=== PATIENT | male | born 1990 | race Caucasian/White ===

== ENCOUNTER → 2017-11-14 10:34 | Outpatient (CLI) | payer SELFPAY ==
--- NOTE | 2017-11-14 10:45 | RAD_ITS ---
STUDY: X-RAY CHEST REASON FOR EXAM: Male, 27 years old. Pneumonia TECHNIQUE: Frontal and lateral views COMPARISON: None. FINDINGS: The lungs are clear and expanded. There is no demonstrated pleural abnormality. Normal size heart. Normal mediastinum and real. Normal visualized pulmonary arteries. Normal visualized aortic arch and descending thoracic aorta. Normal visualized thoracic spine. Normal visualized ribs, clavicles, and shoulders. There is no demonstrated abnormality of the visualized soft tissue structures of the upper abdomen. RAD/Chest PA and Lateral IMPRESSION: Normal x-ray examination of the chest. Electronically Signed: Wesly Acharya DO at 23:48 EDT Tel [phone], Service support ,
== END ==
PROVIDERS: Family Provider Family Medicine; PCP Family Medicine; Visit Provider Family Medicine
DX: J18.9 Pneumonia, unspecified organism (principal)
CPT/HCPCS: 71046

== ENCOUNTER → 2019-03-28 11:03 | Outpatient (CLI) | payer SELFPAY, OTHER ==
--- NOTE | 2019-03-28 11:05 | CT_ITS ---
STUDY: CT MAXILLOFACIAL SINUSES REASON FOR EXAM: Male, 28 years old. Sinusitis, right-sided facial pain. RADIATION DOSAGE (If Supplied By Facility): CTDIvol = ( 33.06 ) mGy, DLP = ( 817.32 ) mGycm TECHNIQUE: The patient was scanned in a multi detector CT scanner. High resolution axial imaging was performed without the administration of intravenous contrast material. Sagittal and coronal images were reconstructed. Individualized dose optimization techniques were used for this CT. COMPARISON: None. FINDINGS: FRONTAL SINUSES: Normal aeration, without mucosal inflammatory disease. ETHMOIDAL SINUSES: Normal aeration, without mucosal inflammatory disease. MAXILLARY SINUSES: The frontal sinuses appear clear. There is a metallic in the floor of the right orbit. There is deformity of the floor of the right orbit. There is minimal mucosal thickening of the maxillary sinuses. SPHENOIDAL SINUSES: Normal aeration, without mucosal inflammatory disease. There is patency of the bilateral maxillary infundibuli with normal uncinate processes, ethmoid bullae, and hiatus semilunaris. Normal bilateral middle turbinates. Normal bilateral inferior turbinates. Normal midline nasal septum. There is patency of the bilateral nasal airways. The visualized osseous structures are normal. The visualized bilateral orbital contents are normal. CT/Sinus/Facial Bone IMPRESSION: 1. Postoperative changes of the right orbit. 2. Minimal mucosal thickening of the maxillary sinuses worse on the right side. 3. No air-fluid levels are seen. Electronically Signed: Domenico Salmeron MD at 13:09 EDT Tel , Service support ,
== END ==
PROVIDERS: Family Provider Family Medicine; PCP Family Medicine; Referring Provider Otolaryngology; Visit Provider Otolaryngology
DX: J32.9 Chronic sinusitis, unspecified (principal)
CPT/HCPCS: 70486

== ENCOUNTER → 2019-06-24 12:23 | Outpatient (CLI) | payer OTHER, SELFPAY ==
[2016-06-18 03:09] VITALS: BMI 21.5
[2019-06-24 14:28] LABS: Anion Gap 8 (5-15); BUN 13 mg/dL (7-18); BUN/Creat Ratio 13.8 RATIO (10-20); Calcium,Total 9.1 mg/dL (8.5-10.1); Chloride 104 mmol/L (98-107); Creatinine, Serum 0.94 mg/dL (0.70-1.30); EST Glomerular Filtration Rate 100 mL/min (>60); Est Glom Filt Rate - Afr Amer 121 mL/min (>60); Glucose 85 mg/dL (74-106); Potassium 3.8 mmol/L (3.5-5.1); Sodium Level 141 mmol/L (136-145)
[2019-06-24 15:31] LABS: Absolute Lymphocyte Count 1.63 X10^3/uL (0.83-4.51); Absolute Neutrophil Count 3.4 X10^3/uL (2.0-7.7); Basophil# 0.05 X10^3/uL; Basophil% 0.9 % (0-1); Eosinophil# 0.11 X10^3/uL; Eosinophils% 1.9 % (0-5); Hematocrit 48.5 % (40-54); Hemoglobin 16.3 g/dL (13.0-16.5); Lymphocyte # 1.63 X10^3/ul (4.0); Lymphocyte % 28.7 % (19-41); Mean Corp Hgb Conc 33.6 g/dL (32-36); Mean Corpuscular Hgb 29.8 pg (27.0-32.0); Mean Corpuscular Volume 88.7 fL (80-94); Mean Platelet Vol. 9.7 fl (6.2-12.0); Monocyte# 0.51 X10^3/uL; NRBC Flagged by Analyzer 0 % (0-5); Neutrophil # 3.35 X10^3/uL (2.7-7.7); Neutrophil % 59.1 % (47-70); Platelet Count 209 K/mm3 (150-450); RBC Distribution Width CV 11.8 % (11.6-14.6); RBC Distribution Width SD 37.9 fl (35.1-43.9); Red Blood Count 5.47 M/mm3 (4.6-6.2); White Blood Count 5.7 K/mm3 (4.4-11.0)
== END ==
PROVIDERS: Family Provider Family Medicine; PCP Family Medicine; Referring Provider Family Medicine; Visit Provider Family Medicine
DX: R42 Dizziness and giddiness (principal)
CPT/HCPCS: 36415; 80048; 85025

== ENCOUNTER → 2019-08-10 14:01 | Outpatient (CLI) | payer OTHER, SELFPAY ==
[2016-06-18 03:09] VITALS: BMI 21.5
[2019-08-10 16:12] LABS: Basophil# 0.06 X10^3/uL; Eosinophil# 0.12 X10^3/uL; Hematocrit 49.6 % (40-54); Hemoglobin 17.1 g/dL (13.0-16.5); Lymphocyte % 22.9 % (19-41); Mean Corp Hgb Conc 34.5 g/dL (32-36); Mean Corpuscular Hgb 30.5 pg (27.0-32.0); Mean Corpuscular Volume 88.4 fL (80-94); Mean Platelet Vol. 9.8 fl (6.2-12.0); Monocyte# 0.51 X10^3/uL; Monocyte% 8.3 % (0-10); NRBC Flagged by Analyzer 0 % (0-5); Neutrophil % 65.3 % (47-70); Platelet Count 208 K/mm3 (150-450); RBC Distribution Width CV 11.6 % (11.6-14.6); RBC Distribution Width SD 37.2 fl (35.1-43.9); Red Blood Count 5.61 M/mm3 (4.6-6.2); White Blood Count 6.1 K/mm3 (4.4-11.0)
[2019-08-10 17:28] LABS: ALB/GLOB Ratio 1.3 RATIO (0.9-2.4); AST(SGOT) 19 U/L (15-37); Alanine Aminotransfer ALT/SGPT 35 U/L (16-61); Albumin, Serum 4.3 g/dL (3.2-5.0); Alkaline Phosphatase 55 U/L (45-117); Anion Gap 7 (5-15); BUN 16 mg/dL (7-18); BUN/Creat Ratio 15.2 RATIO (10-20); Chloride 102 mmol/L (98-107); Creatinine, Serum 1.05 mg/dL (0.70-1.30); EST Glomerular Filtration Rate 88 mL/min (>60); Est Glom Filt Rate - Afr Amer 107 mL/min (>60); Globulin 3.2 g/dL (2.2-4.2); Glucose 85 mg/dL (74-106); Potassium 4.2 mmol/L (3.5-5.1); Protein, Total 7.5 g/dL (6.4-8.2); Sodium Level 138 mmol/L (136-145); Thyroid Stim Hormone (TSH) 1.81 uIU/mL (0.358-3.74)
== END ==
PROVIDERS: Family Provider Family Medicine; PCP Family Medicine; Visit Provider Family Medicine
DX: R21 Rash and other nonspecific skin eruption (principal); R42 Dizziness and giddiness
CPT/HCPCS: 36415; 80053; 84443; 85025

== ENCOUNTER 2020-01-07 03:17 | Emergency (ER) | payer OTHER, SELFPAY ==
[2020-01-07 03:18] VITALS: BP 123/110; PULSE 105; RESP 15; TEMP 36.9; O2SAT 100; BMI 21.7
--- NOTE | 2020-01-07 03:30 | EKG12_ITS ---
Test Reason : PALPS Blood Pressure : / mmHG Vent. Rate : 104 BPM Atrial Rate : 104 BPM P-R Int : 150 ms QRS Dur : 092 ms QT Int : 322 ms P-R-T Axes : 068 -01 067 degrees QTc Int : 423 ms Sinus tachycardia Otherwise normal ECG Confirmed by MIRIAM TA ([id number]), editorial cartoonist JORDIN KEY ([id number]) on 01/11/2020 11:29:54 AM Referred By: Confirmed By:MIRIAM TA
--- NOTE | 2020-01-07 03:31 | ED.VIS.GEN ---
History of Present Illness Chief Complaint: Palpitations Informant: Patient Onset: Today Narrative: Patient states that he was sleeping and he awoke. He states that he was feeling a fast heart rate that would beat about 6 times and then pause. This process repeated for about 15 to 20 minutes. States he is had this in the past where is been very short-lived and typically he get up walk around drink a glass of water and would go away this seem to be lasting longer. He states he was a little short of breath with it. In 2016 the patient had a similar episode came to the emergency department also about the same time of night. In follow-up he had an echocardiogram and stress test that were negative. He states he did not do a Holter monitor through the hospital here but cannot recall what they found and I am unable to find a report in the computer. He reports the occasional tea or coffee but otherwise no caffeine. Non-smoker. He notes that he works inside as compared to outside in the current heat. No muscle cramps. No new medications in the past couple weeks. Past Medical History - Allergies and Home Meds Allergies/Adverse Reactions: Allergies No Known Allergies Allergy (Verified 06/18/16 03:13) Primary Care Physician: Sunil Mac MD [Primary Care Provider] - 1 Week if not improving Smoking Status: Never smoker Review of Systems General: Denies: Chills, Fever, Sweats Eyes: Denies: Visual changes - bilaterally, Diplopia ENT: Denies: Rhinorrhea, Sore throat Cardiovascular: Reports: Palpitations. Denies: Chest pain Respiratory: Denies: Dyspnea, Cough, Dyspnea on exertion Gastrointestinal: Denies: Abdominal pain, Nausea, Vomiting, Diarrhea, Melena, Hematochezia Genitourinary: Denies: Dysuria, Hematuria, Frequency Musculoskeletal: Denies: Back pain, Extremity Pain Skin: Denies: Rash, Wounds Neurological: Denies: Headache, Weakness, Numbness Physical Exam Vital Signs/Narrative: Vital Signs Temp Pulse Resp BP Pulse Ox 01/07/20 03:18 98.4 F 105 H 15 123/110 H 100 Inital Vital Signs reviewed: Yes General: Well nourished, Well developed, No Acute Distress Head: Normocephalic, Atraumatic Eyes: Perrl, EOMI ENT: Moist mucous membranes, No rhinorrhea Neck: Supple, Nontender Cardiovascular: Regular rate, Regular rhythm, No murmurs Respiratory: No distress, CTA bilaterally, Chest nontender Abdomen: Soft, Nontender, Nondistended, Normal bowel sounds Back: Nontender, Normal Inspection Extremities: Nontender, No edema Skin: Normal color, No rash Neurological: Alert, Oriented x3, Cranial nerves II-XII grossly intact, Normal Strength, Normal Sensation Psychological: Normal affect, Normal Mood Diagnostic/Tx/Re-eval Laboratory Last Values Sodium 140 mmol/L (136-145) 01/07/20 03:25 Potassium 3.7 mmol/L (3.5-5.1) 01/07/20 03:25 Chloride 103 mmol/L (98-107) 01/07/20 03:25 Carbon Dioxide 30.0 mmol/L (21.0-32.0) 01/07/20 03:25 Anion Gap 7 (5-15) 01/07/20 03:25 BUN 18 mg/dL (7-18) 01/07/20 03:25 Creatinine 0.96 mg/dL (0.70-1.30) 01/07/20 03:25 Estim Creat Clear Calc 109.33 ml/min 01/07/20 03:25 Est GFR (MDRD) Af Amer 118 mL/min (>60) 01/07/20 03:25 Est GFR (MDRD) Non-Af 98 mL/min (>60) 01/07/20 03:25 BUN/Creatinine Ratio 18.8 RATIO (10-20) 01/07/20 03:25 Glucose 91 mg/dL (74-106) 01/07/20 03:25 Calcium 9.2 mg/dL (8.5-10.1) 01/07/20 03:25 Magnesium 2.1 mg/dL (1.6-2.6) 01/07/20 03:25 - EKG Initial EKG Interpretation: Sinus Tachycardia - EKG demonstrates a sinus tachycardia with a rate of 104. I do not see a delta wave. I do not see any concerning features of ACS. - Medical Decision Making Electrolytes are normal. He was observed on the monitor heart rate is come down into the 70s. I have not seen any ectopy or dysrhythmias. At this point patient be discharged home. ED Disposition - Plan for ED Patient: Disposition: Home or Assisted Living Diagnosis: Palpitations Instructions: ED Palpitations Referrals: Sunil Mac MD [Primary Care Provider] - 1 Week if not improving
[2020-01-07 03:45] VITALS: BP 117/88; PULSE 82; RESP 9; O2SAT 100
[2020-01-07 03:49] LABS: Anion Gap 7 (5-15); BUN 18 mg/dL (7-18); BUN/Creat Ratio 18.8 RATIO (10-20); Calcium,Total 9.2 mg/dL (8.5-10.1); Chloride 103 mmol/L (98-107); Creatinine, Serum 0.96 mg/dL (0.70-1.30); EST Glomerular Filtration Rate 98 mL/min (>60); Est Glom Filt Rate - Afr Amer 118 mL/min (>60); Estimated Creatinine Clearance 109.33 ml/min; Glucose 91 mg/dL (74-106); Magnesium 2.1 mg/dL (1.6-2.6); Potassium 3.7 mmol/L (3.5-5.1); Sodium Level 140 mmol/L (136-145)
[2020-01-07 04:16] VITALS: BP 116/92; PULSE 79; RESP 11; O2SAT 100
== END 2020-01-07 04:20 | disposition home or self-care (01) ==
LOC: ED 04:16
PROVIDERS: Emergency Provider Emergency Medicine; PCP Family Medicine
DX: R00.2 Palpitations (principal)
CPT/HCPCS: 80048; 83735; 93005; 99284; A4216

== ENCOUNTER 2020-11-07 18:35 | Observation (INO) | payer OTHER, SELFPAY ==
[2020-11-07 18:35] VITALS: BP 131/89; PULSE 80; RESP 15; TEMP 36.6; O2SAT 100; BMI 21.9
--- NOTE | 2020-11-07 19:55 | CT_ITS ---
STUDY: CT ABDOMEN AND PELVIS WITH CONTRAST REASON FOR EXAM: Male, 30 years old. Right lower quadrant pain RADIATION DOSAGE (If Supplied By Facility): CTDIvol = ( 8.73 ) mGy, DLP = ( 552.18 ) mGycm TECHNIQUE: CT images were obtained from the dome of the diaphragm to the symphysis pubis without oral contrast. Oral and amp; IV Gastrografin and amp; 100mL Isovue-300 was administered. Sagittal and coronal images were reconstructed. Individualized dose optimization techniques were used for this CT. COMPARISON: None. FINDINGS: The visualized lung bases are unremarkable. The visualized portions of the heart are within normal limits. Normal liver. Normal gallbladder and extrahepatic biliary system. Normal spleen. Normal pancreas. Normal bilateral adrenal glands. Normal right kidney. Normal left kidney. There is no intestinal obstruction. Appendix is inflamed without surrounding free fluid, extraluminal gas or fluid collection. Normal abdominal aorta. Normal inferior vena cava. Normal retroperitoneum. Normal urinary bladder. Normal abdominal wall. Normal osseous structures. CT/Abdomen/Pelvis WITH Contrast IMPRESSION: 1. Appendicitis, no perforation or abscess. Electronically Signed: Brando Porter MD at 22:10 EDT Tel , Service support ,
[2020-11-07 20:08] LABS: Absolute Neutrophil Count 8.8 X10^3/uL (2.0-7.7); Basophil# 0.04 X10^3/uL; Basophil% 0.4 % (0-1); Eosinophil# 0.05 X10^3/uL; Eosinophils% 0.5 % (0-5); Hematocrit 46.8 % (40-54); Hemoglobin 15.8 g/dL (13.0-16.5); Lymphocyte % 8.7 % (19-41); Mean Corp Hgb Conc 33.8 g/dL (32-36); Mean Corpuscular Hgb 30.2 pg (27.0-32.0); Mean Corpuscular Volume 89.3 fL (80-94); Mean Platelet Vol. 9.9 fl (6.2-12.0); Monocyte# 0.56 X10^3/uL; Monocyte% 5.4 % (0-10); NRBC Flagged by Analyzer 0 % (0-5); Neutrophil # 8.75 X10^3/uL (2.7-7.7); Neutrophil % 84.5 % (47-70); Platelet Count 179 K/mm3 (150-450); RBC Distribution Width CV 11.6 % (11.6-14.6); RBC Distribution Width SD 37.3 fl (35.1-43.9); Red Blood Count 5.24 M/mm3 (4.6-6.2); White Blood Count 10.4 K/mm3 (4.4-11.0)
[2020-11-07 20:16] LABS: Anion Gap 5 (5-15); BUN 19 mg/dL (7-18); BUN/Creat Ratio 20.5 RATIO (10-20); Calcium,Total 9.3 mg/dL (8.5-10.1); Chloride 103 mmol/L (98-107); Creatinine, Serum 0.92 mg/dL (0.70-1.30); EST Glomerular Filtration Rate 101 mL/min (>60); Est Glom Filt Rate - Afr Amer 122 mL/min (>60); Estimated Creatinine Clearance 113.87 ml/min; Glucose 86 mg/dL (74-106); Potassium 3.8 mmol/L (3.5-5.1); Sodium Level 137 mmol/L (136-145)
[2020-11-07 20:27] LABS: Bacteria 0 SEEN /hpf (None Seen); Red Blood Cells-Urine 0 SEEN /hpf (0-5); Squamous Epithelial Cells - UA 0 SEEN /hpf (0-5); White Blood Cells 0 SEEN /hpf (0-5)
[2020-11-07] MEDS: 0.9% Normal Saline 1,000 ML 1000 ML IV (20:30)
[2020-11-07 20:31] LABS: Color, Urine Yellow (Yellow); Glucose, Dipstick Normal (Normal); Leukocyte Esterase-Dipstick Negative /ul (Negative); Nitrite-Dipstick Negative (Negative); Occult Blood-Urine Negative /ul (Negative); Protein-Dipstick Negative (Negative); Specific Gravity, Urine 1.025 (1.002-1.030); Urine Bilirubin Dipstick Negative (Negative); Urine Clarity Clear (Clear); Urine Urobilinogen Normal (Normal)
[2020-11-07 20:41] LABS: Ketone-Dipstick 150 mg/dl (Negative)
[2020-11-07 20:43] LABS: Mucous, Urine RARE /hpf (<or=2+)
--- NOTE | 2020-11-07 21:25 | ED.VISSUMM ---
- ER Visit Summary Date of Service: 11/07/20 Chief Complaint: Abdominal pain History of Present Illness: The patient is a [address] Mac. He reports he is right lower quadrant abdominal pain that began this morning. Is gradually gotten worse. Is an aching dull pain is 8 of 10 at worst and 7 out of 10 currently. Is worsened by movement relieved by lying still. Planes of nausea and a poor appetite. No vomiting or diarrhea. No dysuria or frequency. Physical Examination: Vitals: Stable. Afebrile. General: Well-nourished and well-developed. Head: Normocephalic atraumatic. Neck: Supple, no lymphadenopathy. No JVD. Nontender. Cardiovascular: Regular rate and rhythm. No murmurs. Respiratory: No respiratory distress. Clear to auscultation bilaterally. Abdominal: Soft, moderate right lower quadrant tenderness to palpation, nondistended, normal bowel sounds. No guarding, rebound, or peritoneal signs. Back: Nontender. Extremities: Nontender, no edema. Skin: Normal color, no rash. Neurologic: Alert and oriented ?3. Cranial nerves II through XII are intact. Normal strength and sensation. Psych: Normal affect. Test Results: CBC shows 7 neutrophils 85 lymphocytes of 9. Chem-7 shows a BUN of 19. UA is normal. CT then pelvis. IV contrast shows appendicitis. Emergency Department Course and Treatment: Patient refused pain and nausea medications. He was given Zosyn IV. Treatment Plan: Patient was discussed with Dr. Garcia. He will be admitted to hospital for further evaluation and treatment. Disposition: Admitted in stable condition. Impression: 1. Appendicitis. This note was generated with [employer] dictation software. It may contain incorrect words, spelling, and punctuation that were not noted in review of the chart prior to signing ED Disposition - Plan for ED Patient: Referrals: Sunil Mac MD [Primary Care Provider] -
[2020-11-07 22:26] VITALS: BP 116/68; PULSE 75; RESP 18; TEMP 36.7; O2SAT 100
--- NOTE | 2020-11-07 22:53 | HP.PCM_ITS ---
History of Present Illness Date of Admission: 11/07/20 The patient is a 30 year old M presented to the ER due to abdominal pain that started this morning. Patient did have nausea denies any vomiting. Patient last ate an apple slicer at lunch. Patient CT abdomen pelvis which showed acute appendicitis. Patient was given Zosyn IV in the ER. Patient states pain is more in the right lower quadrant currently. Patient's white blood cell count still within normal limits with a left shift. Past Medical History Allergies No Known Allergies Allergy (Verified 11/07/20 18:37) Home Medications: Ambulatory Orders Medication Instructions Recorded Garlic 2 drp PO PRN PRN 11/07/20 Surgical History: - - Right eye socket, or wisdom teeth Psychiatric History: No pertinent psych hx Lives: With Family Smoking Status: Never smoker - *Family History Maternal History Items: No pertinent history Review of Systems Constitutional: Reports: Anorexia VTE Information - Inpt Only VTE Present on Admission: Yes VTE Mechan Device Prophylaxis: SCD's - Physical Exam Vitals/I&O's: Vital Signs Temp Pulse Resp BP Pulse Ox 98.1 F 75 18 116/68 100 11/07/20 22:26 11/07/20 22:26 11/07/20 22:26 11/07/20 22:26 11/07/20 22:26 Oxygen Delivery Method Room Air Weight: 152 lb 8.958 oz Body Mass Index (BMI) 21.9 Intake and Output for Last 24 Hours 11/05/20 11/06/20 11/07/20 23:59 23:59 23:59 Intake Total 1000 / 1000 Balance 1000 / 1000 General: Alert, Oriented x3, Cooperative, No apparent distress HEENT: Atraumatic Lungs: Normal air movement Cardiovascular: Regular rate Abdomen: Soft, Non-Distended, Tender - Right lower quadrant, no peritoneal signs, Hernia - Reducible umbilical hernia Extremities: No clubbing, No cyanosis, No edema Neurological: Cranial nerves II-XII grossly intact Psych/Mental Status: Normal Affect Microbiology Past 72 Hours 11/07/20 20:15 Mucosa - Nose SARS-CoV-2 Antigen (Rapid) - Final Laboratory Results 11/07/20 19:45: WBC 10.4, RBC 5.24, Hgb 15.8, Hct 46.8, MCV 89.3, MCH 30.2, MCHC 33.8, RDW Std Deviation 37.3, RDW Coeff of [place] 11.6, Plt Count 179, MPV 9.9, Immature Gran % (Auto) 0.500, Neut % (Auto) 84.5 H, Lymph % (Auto) 8.7 L, Bath % (Auto) 5.4, Eos % (Auto) 0.5, Baso % (Auto) 0.4, Absolute Neuts (auto) 8.8 H, Absolute Lymphs (auto) 0.90, Nucleated RBC % 0 11/07/20 19:45: Sodium 137, Potassium 3.8, Chloride 103, Carbon Dioxide 29.0, Anion Gap 5, BUN 19 H, Creatinine 0.92, Estim Creat Clear Calc 113.87, Est GFR (MDRD) Af Amer 122, Est GFR (MDRD) Non-Af 101, BUN/Creatinine Ratio 20.5 H, Glucose 86, Calcium 9.3 11/07/20 20:15: Urine Color Yellow, Urine Clarity Clear, Urine pH 6.0, Ur Specific [place] 1.025, Urine Protein Negative, Urine Glucose (UA) Normal, Urine Ketones 150 H, Urine Occult Blood Negative, Urine Nitrite Negative, Urine Bilirubin Negative, Urine Urobilinogen Normal, Ur Leukocyte Esterase Negative, Urine RBC 0 SEEN, Urine WBC 0 SEEN, Ur Squamous Epith Cells 0 SEEN, Urine Bacteria 0 SEEN, Urine Mucus RARE Assessment/Plan 30-year-old male with acute appendicitis 1. Discussed procedure laparoscopic appendectomy, possible open, possible bowel resection along with the risk but not limited to bleeding, infection/abscess, injury to another organ (small bowel, colon, etc.), adhesion, hernia at incision sites, and anesthesia. Mariana Garcia M.D. Pager: [phone] [facility] [address] [place] [address], [address] [place] [address] Office: [phone] Procedure Criteria Procedure Type: Elective COVID Risk Discussion: The surgeon/proceduralist and patient have discussed in detail the risk of exposure to and/or potential harm posed by the COVID-19 virus with having a surgery/procedure at this time versus the risk of delaying the surgery/procedure. It is not possible to know either the risk of delaying the surgery or procedure or chance of getting an infection with perfect accuracy, but a joint decision was made between the patient and the surgeon/proceduralist to proceed at this time with the scheduled surgery/procedure as indicated on the consent form.
[2020-11-07 23:49] VITALS: BMI 21.5
[2020-11-07 23:50] VITALS: BP 116/70; PULSE 58; RESP 16; TEMP 36.8; O2SAT 100
[2020-11-07 23:56] VITALS: BMI 21.5
[2020-11-08] VITALS (8 sets, daily range): BP systolic 108–134; BP diastolic 67–92; PULSE 66–91; RESP 16–18; TEMP 36.3–36.8; O2SAT 97–100; BMI 21.5
[2020-11-08] MEDS: 0.9% Normal Saline 1,000 ML 130 ML IV ×3 (00:07→09:32)
[2020-11-08] MEDS: 0.9% Saline Lock 10 ML Syringe IV (04:58)
--- NOTE | 2020-11-08 06:00 | APP_PTH ---
PATIENT: FINA KEY LOC: [facility]3 U#:[id number] AGE/SX: 30/M [facility] RE11/07/[address]: Dr. Mariana Garcia MD : 1990 BED: 1 DIS: 11/08/2020 SPEC #: [id number] RECD: 11/08/20 11:42 STATUS: MADELINE REQ #: [id number] MANOLO: 11/08/20 06:[address]: Mariana Garcia DEPT: SURGICAL PATHOLOGY RECD BY: Tracie Tovar ENTERED: 11/08/20 12:27 SP TYPE: APPENDIX OTHR DR: Dr. Sunil Mac MD Tissues: Appendix, NOS Procedures: Surgery Specimen Level III HEADER OPERATION: Laparoscopic appendectomy PRE-OP DIAGNOSIS: Acute appendicitis TISSUE SUBMITTED: Appendix MICROSCOPIC DIAGNOSIS Appendix, appendectomy: Acute appendicitis. Acute serositis. AM:deirdre 11/09/2020 MICROSCOPIC DESCRIPTION Slides are reviewed. GROSS DESCRIPTION Received in fixative is one container labeled with the patient's name and designated appendix. The specimen consists of an appendix measuring 4.5 cm in length and up to 1 cm in diameter. The attached periappendiceal adipose tissue measures up to 2 cm in width. The serosa is congested. No obvious perforation is identified. The lumen contains hemorrhagic fluid. No fecalith is identified. Wood Router sections are submitted in one cassette. / SJ:deirdre 11/08/20 TC:2 CPT: 10713
[2020-11-08] MEDS: Bupiv/Epi 0.5% Mpf 30 ML Vial (07:51)
--- NOTE | 2020-11-08 07:54 | OP.PCM_ITS ---
Report of Operation Date of Procedure: 11/08/20 Pre-Operative Diagnosis: Acute appendicitis Post-Operative Diagnosis: Same Surgery/Procedure Performed:: Laparoscopic appendectomy Type of Anesthesia:: Local MAC Anesthesiologist: Balbir Koroma Special Medications: Zosyn 3.375 g IV scheduled for acute appendicitis Specimen's removed: Appendix Estimated Blood Loss (mL): < 10 cc Fluids Replaced: 1000 cc Description of Procedure: Indications: 30-year-old male presented to the ER with new right lower quadrant pain yesterday morning. On workup he was found to have acute appendicitis on CT and a leukocytosis of 10.4 with a left shift. Patient was started on antibiotics in the ER for acute appendicitis-Zosyn 3.375 g IV every 8 hours. Description of the procedure: The patient was placed on operating table in supine position. General anesthesia was induced. A timeout was completed verifying correct patient, procedure, position and special equipment prior to beginning procedure. Abdomen was prepped and draped in usual sterile fashion. Incision was made in the natural skin line below the umbilicus with a 15 blade scalpel, small umbilical hernia included in the 12 mm port site. The fascia was elevated and incised. Entry into the peritoneum was confirmed visually and no bowel was noted in the vicinity of the incision. The Ching trocar was placed under direct vision. Abdomen insufflated with a pressure of 12-15 mmHg. Patient tolerated insertion well. The scope was inserted and the abdomen inspected. No injuries from initial trocar placement were noted. Minimal amount of fluid was seen in the right lower quadrant. An direct visualization 2 -5 mm trocars were placed one above the symphysis pubis and below the hairline and one in the left lower quadrant lateral to the rectus muscle. Care is taken to avoid injury to the bladder and inferior epigastric vessels. The table was placed in Trendelenburg position with the right side elevated. The appendix was grasped with atraumatic grasper and elevated. It was noted to be inflamed. A window was developed in the mesoappendix at the point between the base of the appendix and the cecum. An endoscopic 45 mm linear cutting stapler blue load was then used to divide and staple the base of the appendix. Enseal was used to divide the mesoappendix. The appendix was withdrawn into the Ching trocar after being placed endoscopically retrieval bag. Appendix was sent to pathology. The appendiceal stump was then irrigated and hemostasis was assured. Fluid was suctioned no other pathology was identified. Secondary trochars were removed under direct visualization. No bleeding was noted trocar sites. The laparoscope withdrawn and the umbilical trocar removed. The abdomen was allowed to collapse. Local anesthesia of 20 mL of 0.5% Marcaine was used at the incision sites. The umbilical trocar site was closed with the [id number] 0 Vicryl suture. The skin was closed up to clear sutures of 4-0 Monocryl and Steri-Strips. The patient was extubated. The patient tolerated the procedure well and was jeremy en to the postanesthesia care unit in satisfactory condition. - Complications None
--- NOTE | 2020-11-08 08:22 | PCM.DC.APPY ---
Discharge Diet: Light diet - advance as tolerated Discharge Activity: May not drive while taking narcotic pain medications. May shower in (days): 1 Lifting Restrictions: no lifting > 20 pounds, no strenuous exercise for 4 weeks Call your doctor if your incision/area has: Continuous Slow Oozing, Sudden Increased Bleeding, Increased Pain/ Swelling, Increased Redness, Foul Smelling Discharge, Swelling at the incision site Call your doctor if you observe: Fever of 101 or Higher Additional Dressing/Incision Instructions:: Okay to remove op sites tomorrow. Steri-Strips stay on for 7 to 10 days-- If they do not follow-up in 10 days okay to remove Medications to take at Discharge Garlic 2 drp PO PRN PRN 11/07/20 Oxycodone HCl/Acetaminophen [Percocet 5/325] 1 - 2 tablet PO Q6H PRN PRN 2 Days #10 tablet 11/08/20 Allergies/Adverse Reactions: Allergies No Known Allergies Allergy (Verified 11/07/20 18:37) Primary Care Physician: Sunil Mac MD [Primary Care Provider] - Test Results: Test results from this visit will be discussed in further detail at your follow-up appointment, if applicable. Please Follow Up With: Mariana Garcia MD - [facility] 5 [phone] with any concerns When: Call the office for a follow-up appointment 2 weeks. Proposed Discharge Date: 11/08/20
[2020-11-08] MEDS: Lactated Ringers 1,000 ML 100 ML IV (08:35)
--- NOTE | 2020-11-08 13:11 | CHAPLAIN ---
Type of Pastoral Visit _x__ Initial Visit ___ Follow-up Visit ___ On-call Visit ___ General Patient Visit ___ Spiritual Assessment ___ Family Conference ___ Bereavement ___ Rapid Response ___ Code Blue ___ Other (describe below) Pastoral Care Referral From _x__ Patient ___ Family ___ Nurse ___ Physician ___ Position Description Manager ___ Clinical Trials Nurse ___ Other (describe below) Sacrament/Intervention _x__ Active listening ___ Anointing ___ Religious ___ Bereavement ___ Communion ___ Deepa exploration ___ ___ Life review _x__ Prayer ___ Reconciliation ___ Sacrament of Sick _x__ Supportive presence ___ Wedding ___ Other (describe below) Pastoral Comments patient was in hallway walking and conversation was initiated; pt was welcoming and spoke his thoughts of spiritual care as needed for the hospital and his appreciation that it is available; pt was engaging and open for presence and prayer during his walk in the a[place]
== END 2020-11-08 14:00 | disposition home or self-care (01) ==
LOC: ED 20:08 → MS3 22:51
PROVIDERS: Admitting Provider Surgery; Emergency Provider Emergency Medicine; PCP Family Medicine; Visit Provider Surgery
PROC: 0DTJ4ZZ Resection of Appendix, Percutaneous Endoscopic Approach (ICD-10-PCS; CPT 44970; principal; 2020-11-08 06:00)
DX: K35.80 Unspecified acute appendicitis (principal)
CPT/HCPCS: 00840; 44970; 74177; 80048; 81001; 85025; 87426; 88304; 96361; 96365; 99218; 99251; 99284; J7030; J7050; J7120; Q9967; A4216; C1760; G0378; G0463; J2405